=== PATIENT | male | born 1970 | race Caucasian/White ===

== ENCOUNTER 2017-06-26 07:25 | Emergency (ER) | payer OTHER ==
[~2017-06-26 07:25] MED LIST: CLINDAMYCIN HC300 MG PO; VOLTAREN50 M1 PO
== END 2017-06-26 08:09 | disposition home or self-care (01) ==
LOC: ED 07:25
DX: S30.861A Insect bite (nonvenomous) of abdominal wall, initial encounter (principal); S70.362A Insect bite (nonvenomous), left thigh, initial encounter; S70.262A Insect bite (nonvenomous), left hip, initial encounter; W57.XXXA Bitten or stung by nonvenomous insect and other nonvenomous arthropods, initial encounter; Y93.89 Activity, other specified; Y92.89 Other specified places as the place of occurrence of the external cause; Y99.8 Other external cause status